=== PATIENT | male | born 1960 | race Caucasian/White ===

== ENCOUNTER 2023-01-22 08:13 | Inpatient (IN) ==
--- NOTE | 2023-01-04 15:55 | PAT Medication Instructions ---
Medication Instructions Date of Service January 04, 2023 Home Medications amlodipine 5 mg tablet 5 mg PO QPM aspirin 81 mg tablet,delayed release 81 mg PO QAM valsartan 160 mg-hydrochlorothiazide 12.5 mg tablet 1 tab PO QAM zolpidem 5 mg tablet (Ambien) 5 mg PO HS PRN Sleep DO NOT take the morning of surgery valsartan 160 mg-hydrochlorothiazide 12.5 mg tablet 1 tab PO QAM Take morning of surgery With a small sip of water, OTHERWISE NOTHING TO EAT OR DRINK AFTER MIDNIGHT: aspirin 81 mg tablet,delayed release 81 mg PO QAM (unless surgeon directed otherwise) Take evening before surgery amlodipine 5 mg tablet 5 mg PO QPM zolpidem 5 mg tablet (Ambien) 5 mg PO HS PRN Sleep (if needed) Other Notes If you have any questions please call us at [phone] or [phone] or [phone] or [phone]
--- NOTE | 2023-01-08 10:50 | Anesthesiology Consultation ---
Date of Service January 08, 2023 Assessment & Plan (1) Encounter for pre-operative examination: Plan - cough/PCP note: resolved per pt. - anesthesia complication: Pt reports "difficulty re-inflating lung" after renal surgery. No additional records. - Case discussed in detail with Dr. Gr who advised that nothing additional is needed from an anesthesia standpoint. Chart Review Chart Review: Acceptable Risk for Surgery and Patient seen in Pre Admission Testing Teaching & Discussion Pre-Anesthesia Teaching/Discussion Notes: Instructed NPO after midnight before surgery, except medications with 15 cc of water. Medication instructions provided according to the PAT guidelines. History Surgery Operation Date: 01/22/23 07:45 Proposed Procedures p L5-S1 Decomrpession and Fusion, Spinal Cord Monitoring - Marshall Bo, Height/Weight Height: 5 ft 10 in Weight: 102.1 kg Allergies Allergy/AdvReac Type Severity Reaction Status Date / Time meperidine [From Demerol] Allergy nausea and Verified 01/01/23 15:03 vomiting Medications Home Medications Medication Instructions Recorded Confirmed Last Taken amlodipine 5 mg tablet 5 mg PO QPM 01/01/23 01/01/23 Unknown aspirin 81 mg tablet,delayed 81 mg PO QAM 01/01/23 01/01/23 Unknown release valsartan 160 1 tab PO QAM 01/01/23 01/01/23 Unknown mg-hydrochlorothiazide 12.5 mg tablet zolpidem 5 mg tablet (Ambien) 5 mg PO HS PRN Sleep 01/01/23 01/01/23 Unknown Past Medical History Medical History Anxiety Deafness in left ear GERD (gastroesophageal reflux disease) rare History of anesthesia problem following nephrectomy "anesthesia had trouble reinflating his lung following the surgery, had to spend additional time in recovery." History of COVID-summer, home test, not hosp; fatigue, fever, flu-symptoms>resolved. Hx of kidney disease L 25 yrs ago, hematoma-unknown cause per pt-requiring nephrectomy in [place] Hypertension controlled, stable per pt Solitary kidney, acquired Patient denies h/o stroke, seizures, heart attack, heart failure, DM, blood clots or blood transfusions. Exercise / Class Metabolic Activity II 4-5 Yardwork/Stairs/Walk up hill (denies chest discomfort or shortness of breath with 1 FOS) Past Surgical History Surgical History History of nephrectomy L History of orchiectomy, unilateral left-"kept growing and causing pain/discomfort; no cause for the growth of the testicle" Hx laparoscopic cholecystectomy Hx of colonoscopy Hx of hernia repair 5 hernias repaired at one time-between umbilicus and groin Hx of laminectomy 6-7 years ago, in [place]; arthroscopic laminectomy Hx of tonsillectomy Past Anesthesia History No Family Hx of Anesthesia Complications and Other (see above) History of PONV No Hx of Motion Sickness and History of PONV Social History Smoking Status: Never smoker Do You Dip or Chew Tobacco: Yes (1 CAN/2-3 DAYS; ADVISED) Hx Alcohol Use: Yes Alcohol type: beer Alcohol Intake Frequency Comment: 1-2 PER WEEK Hx Substance Use: No substance use type: does not use Review of Systems Snoring, denies witnessed apneas. Patient denies chest pain, shortness of breath, dyspnea on exertion, fever, chills, wheezing, or palpitations. Physical Exam Vital Signs Vitals BP 120/79 P 73 TEMP 98.3 SP02 94% on RA RESP 18 Physical Patient alert and oriented throughout visit, in NAD, walking in room as needed for back pain Full cervical extension range of motion without pain TMD 3.5 finger breadths Mallampati Score 3 Dentition: full upper and lower dentures Lungs: normal respiratory effort. Clear throughout to auscultation, no adventitious breath sounds Cardiac: regular rate and rhythm, no murmurs noted Carotid arteries: negative bruit bilat Lab Results Anesthesia Preop Results Results Anesthesia Widget: WBC 5.36 K/ul (4.8-10.8) 01/08/23 Hgb 14.7 g/dl (14.0-18.0) 01/08/23 Hct 42.1 % (42.0-52.0) 01/08/23 Plt 331 K/uL (130-400) 01/08/23 Na 137 mmol/L (136-145) 01/08/23 K 4.0 mmol/L (3.5-5.1) 01/08/23 Cl 101 mmol/L (98-107) 01/08/23 CO2 32 mmol/L (21-32) 01/08/23 BUN 7 mg/dl (6-23) 01/08/23 Creat 0.89 mg/dl (0.6-1.4) 01/08/23 Glucose Level 102 mg/dl (70-99(Fasting)) H 01/08/23 PT 10.0 Seconds (9.0-12.0) 01/08/23 PTT 28.2 Seconds (21.0-31.0) 01/08/23 INR 0.9 (0.9-1.1) 01/08/23 Urine Color Yellow 01/08/23 Urine Appearance Clear (Clear) 01/08/23 Urine pH 6.5 (4.5-7.5) 01/08/23 Urine Specific Cecil 1.007 (1.000-1.030) 01/08/23 Urine Protein Negative (Negative) 01/08/23 Urine Glucose (UA) Negative (Negative) 01/08/23 Urine Ketones Negative (Negative) 01/08/23 Urine Blood Negative (Negative) 01/08/23 Urine Nitrite Negative (Negative) 01/08/23 Urine Bilirubin Negative (Negative) 01/08/23 Urine Urobilinogen Negative (Negative) 01/08/23 Urine Leukocyte Esterase Negative (Negative) 01/08/23 Blood Type O Negative 01/08/23 Antibody Screen NEGATIVE 01/08/23 Testing Electrocardiogram Date: 01/08/23 NSR, rate 66 bpm Chest X-Ray Date: 01/08/23 Lung volumes are normal. Lungs are clear. There is no pneumothorax or pleural effusion. Cardiac size is normal. Mediastinal contours are normal. There is no evidence for pulmonary edema. IMPRESSION: No acute cardiopulmonary findings. COVID-19 Risk Screen Screening Information COVID-19 Screen Date: 01/08/23 Exposure 21 Days Family/Household +COVID Last 21 Days: No Exposure 10 Days Any COVID Exposure Last 10 Days: No Symptoms Last 10 Days Experienced COVID Sx Last 10 Days: No + COVID 0-90 Days COVID + in Last 0-90 Days: No
[~2023-01-22 08:13] MED LIST: ACETAMINOPHEN 500 MG TAB PO SCH; CeleBREX 200 MG CAP PO SCH; GABAPENTIN 600 MG DOSE PO SCH; LR 15ML/HR IV SCH; ceFAZolin 2000MG 2,000 MG/15 ML SYR IV SCH
[2023-01-22] MEDS ORDERED: fentaNYL citrate PF 100 MCG/2 ML VIAL IV PRN (09:09)
[2023-01-22] MEDS ORDERED: ePHEDrine sulfate 50 MG/ML AMP IV PRN (09:09)
[2023-01-22] MEDS ORDERED: ONDANSETRON INJ 2 MG/ML 2 ML VIAL IV PRN ×2 (09:09→14:23)
[2023-01-22] MEDS ORDERED: ATROPINE SULFATE 0.1 MG/ML 10ML SYR IV PRN (09:09)
[2023-01-22] MEDS ORDERED: MIDAZOLAM HCL 1 MG/ML 2ML VIAL ONE (10:11)
[2023-01-22] MEDS ORDERED: ROCURONIUM BROMIDE 10 MG/ML 5 ML VIAL IV ONE ×2 (10:11→11:31)
[2023-01-22] MEDS ORDERED: PROPOFOL IV EMULSION 10 MG/ML 20 ML VIAL IV ONE (10:11)
[2023-01-22] MEDS ORDERED: fentaNYL citrate PF 100 MCG/2 ML VIAL ONE (10:11)
[2023-01-22] MEDS ORDERED: ONDANSETRON INJ 2 MG/ML 2 ML VIAL ONE (10:11)
[2023-01-22] MEDS ORDERED: LIDOCAINE 2% MPF LOCAL 5 ML VIAL ONE (10:11)
[2023-01-22] MEDS ORDERED: DEXAMETHASONE SOD INJ 4 MG/ML VIAL ONE (10:11)
--- NOTE | 2023-01-22 10:24 | History & Physical Bridge Note ---
Date of Service January 22, 2023 History & Physical Bridge Note I have examined the patient, reviewed the History & Physical and in the interval since the performance of the History & Physical I have noted the following changes of clinical significance: no changes noted L5-S1 decompression fusion, possible L4-L5
--- NOTE | 2023-01-22 10:25 | History & Physical Report ---
Date of Service January 22, 2023 Assessment & Plan (1) Neurogenic claudication due to lumbar spinal stenosis: Plan: Lumbar decompression fusion L5-S1 possible L4-L5 History of Present Illness Chief Complaint: Back and leg pain Primary Care Provider: Dante Bustillos, PhD, DO This is a 63-year-old male who presents with chronic persistent back and leg pain. After failing since course of nonoperative care is here for surgical invention. Allergies Allergy/AdvReac Type Severity Reaction Status Date / Time meperidine [From Demerol] Allergy nausea and Verified 01/22/23 08:59 vomiting Home Medications Medication Instructions Recorded Confirmed Type amlodipine 5 mg tablet 5 mg PO QPM 01/01/23 01/22/23 History aspirin 81 mg tablet,delayed 81 mg PO QAM 01/01/23 01/22/23 History release valsartan 160 1 tab PO QAM 01/01/23 01/22/23 History mg-hydrochlorothiazide 12.5 mg tablet zolpidem 5 mg tablet (Ambien) 5 mg PO HS PRN Sleep 01/01/23 01/22/23 History Past Med/Surg History Medical History Anxiety Deafness in left ear GERD (gastroesophageal reflux disease) rare History of anesthesia problem following nephrectomy "anesthesia had trouble reinflating his lung following the surgery, had to spend additional time in recovery." History of COVID-19 summer 2021, home test, not hosp; fatigue, fever, flu-symptoms>resolved. Hx of kidney disease L 25 yrs ago, hematoma-unknown cause per pt-requiring nephrectomy in [place] Hypertension controlled, stable per pt Solitary kidney, acquired Surgical History History of nephrectomy L History of orchiectomy, unilateral left-"kept growing and causing pain/discomfort; no cause for the growth of the testicle" Hx laparoscopic cholecystectomy Hx of colonoscopy Hx of hernia repair 5 hernias repaired at one time-between umbilicus and groin Hx of laminectomy 6-7 years ago, in [place]; arthroscopic laminectomy Hx of tonsillectomy Social History Smoking Status: Never smoker 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); Do You Dip or Chew Tobacco: Yes (1 CAN/2-3 DAYS; ADVISED); Tobacco Cessation Education Requested by Patient: No Hx Alcohol Use: Yes Alcohol type: beer Hx Substance Use: No Preferred Language: Lao Communication Ability: Effective [employer] Work Supervisor Required: No Beliefs That Will Affect Care: None Current Living Situation: Spouse Other Information That Helps Us Care for You: No Feels Safe at Home: Yes Safety Concerns: Feels Safe At This Time Assistive Devices: Denture - Upper and Glasses Physical Exam Physical Exam: Patient is alert and oriented Heart regular rhythm Lungs clear Results & Data Results & Data Vital Signs (Past 12 Hours) Vital Signs Temp Pulse Resp BP Pulse Ox O2 Del Method 01/22/23 08:51 36.8 C 74 20 128/85 96 Room Air
[2023-01-22] MEDS ORDERED: BUPIVACAINE/EPINEPHRINE 0.25% 1:200,000 30 ML VIAL ONE (10:47)
[2023-01-22] MEDS ORDERED: ceFAZolin 330 MG/ML 1 GM VIAL ONE (10:47)
[2023-01-22] MEDS ORDERED: PHENYLEPHRINE HCL 10 MG/ML VIAL ONE (11:50)
[2023-01-22] MEDS ORDERED: SUGAMMADEX SODIUM 200 MG/2 ML VIAL IV ONE (12:18)
[2023-01-22] MEDS ORDERED: FLOSEAL HEMOSTATIC MATRIX 10ML TOP ONE (12:37)
--- NOTE | 2023-01-22 13:06 | Operative Report ---
Post Operative Report Pre & Post Diagnosis Operation Date: 01/22/23 10:05 Pre-Op Diagnosis: Neurogenic claudication due to lumbar spinal stenosis Recurrent disc herniation L5-S1 Post-Op Diagnosis: Same I identified the patient and participated in the time-out.: Yes Procedure Operation Date: 01/22/23 10:05 Actual Procedures #1 revision decompression with bilateral medial facetectomies and foraminotomies L1 4 L5 L5-S1. #2 posterior spinal fusion L5-S1. #3 placement of posterior instrumentation L5-S1. #4 interbody fusion L5-S1. #5 placement of Spira 12 x 26 mm cage L5-S1. #6 placement locally harvested morselized autograft in the posterior gutters. #7 placement of I factor amount of the talus in the interbody space and posterior lateral gutters. Surgeon Marshall Bo, DO Project Mgr Romeo Holley Estimated Blood Loss 200 Findings See Below The patient is 5 foot 10 weighing over 100 kg with a BMI in excess of 31. Patient body habitus did contribute to significant technical difficulty required deepest retractors longer instruments in order to perform his procedure. This at least 50% increased operative time. Specimens None Indications This is a 63-year-old male who presents above-mentioned diagnosis after failing course of nonoperative care is here for surgical invention. Description of Procedure Patient was met with identified informed consent obtained. Patient was then taken to the operative suite underwent a patient placed in a prone position jacks table top Stephan frame. All bony promises well-padded eyes inspected to ensure no external pressure placed monitor at this point the lumbar spine was prepped and draped in normal sterile fashion. Sharp dissection with the assistance of bradycardia from down to and exposing the remaining lamina and transverse processes of L4-L5 and sacral ala bilaterally. A revision complete laminectomy of L5 partial laminectomy of L4 was performed including bilateral medial facetectomies and foraminotomies addressing severe spinal stenosis as well as evidence of a massive recurrent disc herniation L5-S1 on the left causing severe compression of the traversing roots. Was able to mobilize them immediately and remove all recurrent herniated fragments. Pedicle screws then placed in L5 and S1 levels bilaterally with assistance of fluoroscopy and the proper sized jerardo placed. By way of a transforaminal approach on the left complete discectomy of L5-S1 was performed endplates curetted to subcortically bone and a 12 x 26 mm Spira cage with I factor tapped in position. The rods then locked into final position bilaterally. The transverse processes of L2 5 and the sacral ala burred to subcortical bleeding bone. I factor amount of the test and locally harvested morselized autograft was placed in the posterior gutters. 15 round ANTONIO drain inserted. The incision was then closed with 1 Vicryl the fascia 2-0 Vicryl subcutaneously and 4 Monocryl for final skin closure. Steri-Strips and sterile dressing placed. Patient awakened taken to PACU stable condition. Please note spinal cord monitoring was utilized at the procedure no changes noted. Lastly Romeo Holley was present at the entire surgery and while the patient positioning complex portions of the surgery and final skin closure. I attest to the content of the Intraoperative Record and any orders documented therein. Any exceptions are noted below.
[2023-01-22] MEDS ORDERED: HYDROmorphone INJ 2 MG/ML SYR/VIAL ONE (13:13)
--- NOTE | 2023-01-22 13:19 | Fluoroscopy Report ---
FL lumbar spine 2-3V CLINICAL HISTORY: L5-S1 DFI COMPARISON STUDY: None. FLUOROSCOPY TIME: 19 seconds. Ka, r: 19.21 mGy FLUOROSCOPIC IMAGES: 2 FINDINGS: Fluoroscopy was provided during L5-S1 discectomy, posterior decompression and bilateral ped icle screw fusion. Hardware is intact. IMPRESSION: Fluoroscopy provided during L5-S1 discectomy, posterior decompression and bilateral pedi sandi screw fusion. ACT 112: Negative or not required by law. Electronically signed by: Cleve Snowden M.D. 01/22/2023 1:17 PM
--- NOTE | 2023-01-22 13:59 | Anesthesiology Progress Note ---
Date of Service January 22, 2023 Anesthesia Post Procedure Vital Signs Vital Signs: Temp Pulse Pulse Resp BP Pulse Ox O2 Del Method 01/22/23 13:45 71 19 105/75 98 Oxymask 01/22/23 13:35 73 19 132/78 100 Oxymask 01/22/23 13:26 96.8 F L 83 20 131/77 97 Oxymask 01/22/23 08:51 98.2 F 74 20 128/85 96 Room Air O2 Flow Rate 01/22/23 13:45 5 01/22/23 13:35 5 01/22/23 13:26 9 01/22/23 08:51 Transfer of Care Handoff Completed per policy Notes Mental Status: alert / awake / arousable and participated in evaluation Patient Amnestic to Procedure: Yes Nausea / Vomiting: adequately controlled Pain: adequately controlled Airway Patency, RR, SpO2: stable & adequate BP & HR: stable & adequate Hydration State: stable & adequate Anesthetic Complications: no major complications apparent and Pt Satisfied with anesthetic care
[2023-01-22] MEDS ORDERED: traMADol HCL 50 MG TABLET PO PRN (14:23)
[2023-01-22] MEDS ORDERED: ACETAMINOPHEN 1,000 MG/100 ML VIAL IV PRN (14:23)
[2023-01-22] MEDS ORDERED: PROMETHAZINE HCL 12.5 MG in SODIUM CHLORIDE 0.9% 50 ML IV PRN (14:23)
[2023-01-22] MEDS ORDERED: LORazepam 2 MG/1 ML VIAL IV PRN (14:23)
[2023-01-22] MEDS ORDERED: SOD PHOSPHATE/SOD BIPHOSPHATE ENEMA 132 ML BTL PR PRN (14:23)
[2023-01-22] MEDS ORDERED: NALOXONE HCL 0.4 MG/1 ML VIAL/CARP IV PRN (14:23)
[2023-01-22] MEDS ORDERED: METOCLOPRAMIDE HCL INJ 5 MG/ML 2 ML VIAL IV PRN (14:23)
[2023-01-22] MEDS ORDERED: DO NOT ADMINISTER FLU VACCINE PRN (14:23)
[2023-01-22] MEDS ORDERED: HYDROmorphone INJ 1 MG/ML SYRINGE IV PRN (14:23)
[2023-01-22] MEDS ORDERED: ALUMINUM/MAGNESIUM SUSP 30 ML UDC PO PRN (14:23)
[2023-01-22] MEDS ORDERED: bisacodyL 10 MG SUPP PR PRN (14:23)
[2023-01-22] MEDS ORDERED: LORazepam 0.5 MG TAB PO PRN (14:23)
[2023-01-22] MEDS ORDERED: MAGNESIUM HYDROXIDE SUSP 30 ML UDC PO PRN (14:23)
[2023-01-22] MEDS ORDERED: diphenhydrAMINE Capsule 25 MG CAP PO PRN (14:23)
[2023-01-22] MEDS ORDERED: DO NOT ADMINISTER PNEUMOCOCCAL VACCINE PRN (14:23)
[2023-01-22] MEDS ORDERED: ONDANSETRON 4 MG OD TAB PO PRN (14:23)
[2023-01-22] MEDS ORDERED: hydrOXYzine HCl 25 MG TAB PO PRN (14:23)
[2023-01-22] MEDS ORDERED: HYDROmorphone INJ 0.5 MG/0.5 ML SYR IV PRN (14:23)
[2023-01-22] MEDS ORDERED: FAMOTIDINE 20 MG TAB PO PRN (14:23)
[2023-01-22] MEDS: oxyCODONE HCL IR 5 MG TAB (IMMEDIATE RELEASE) PO PRN ×2 (14:47→22:06)
--- NOTE | 2023-01-22 15:06 | Hospitalist Consultation ---
Date of Consultation January 22, 2023 Assessment & Plan (1) Neurogenic claudication due to lumbar spinal stenosis: - Pain management, bowel regimen and DVT ppx per the primary team - PT/OT consults, pt is planning on outpatient therapy , at bedside will assist at home - Follow am CBC to monitor for acute blood loss, last hemoglobin was 14.7 on 01/08/2023 (2) Hypertension: -Continue baby aspirin and amlodipine, valsartan/HCTZ (3) Chewing tobacco nicotine dependence: - Nicotine patch ordered - Chews 1 can in 2-3 days and has been chewing since age 11. No desire to quit. Discussed with him at bedside and encouraged cessation to promote optimal wound healing. (4) GERD (gastroesophageal reflux disease): -Stable (5) Solitary kidney, acquired: -Right kidney. -Status post left kidney nephrectomy from kidney hematoma of unknown origin, removed in [place] DVT PPx: - teds, scds CODE: Full code Dispo: From home, likely to remain in the hospital x 1-2 days, discharge per primary team Thank you for involving us in the care of Mr. Balderas. If you have any questions or concerns please do not hesitate to call. At this time medicine will follow along. A total of 41 minutes were spent with greater than 50% of that time face to face with the patient, personally reviewing all current laboratories, imaging studies, past medication reconciliation, outpatient chart review, and discussion with specialists to collaborate care for the patient with attending. Please see attending documentation for corrections and/or additions. History of Present Illness Reason for Consultation: Medical management Requesting Physician: Dr. Bo Attending Physician: Marshall Bo DO History of Present Illness This is a 63-year-old male with PMHx of hypertension, right solitary kidney, history of kidney disease left kidney with hematoma of unknown origin requiring nephrectomy in [place], GERD, anxiety, deafness in left ear, obesity with BMI of 31.9, who presents to the hospital for elective revision decompression and fusion by Dr. Bo on 01/22/23. Patient states that he is doing well, his is present with him at bedside. He has minimal pain, was just given a pain tablet by nursing personnel 15 minutes prior to my arrival. Last bowel movement was yesterday. He has tolerated water, no other food yet. Denies any abdominal complaints. Patient admits to chewing tobacco since age 11, chews 1 can in approximately 2 to 3 days. Cessation was encouraged at bedside. Discussion regarding optimal wound healing and nicotine was held at bedside. Patient is agreeable to attempting to cut back. He took all his morning medications. Patient reports using Ambien fairly regularly at home for sleep, he has been taking this for many years, occasionally cuts the pill in half. Allergies Allergy/AdvReac Type Severity Reaction Status Date / Time meperidine [From Demerol] Allergy nausea and Verified 01/22/23 08:59 vomiting Home Medications Medication Instructions Recorded Confirmed Type amlodipine 5 mg tablet 5 mg PO QPM 01/01/23 01/22/23 History aspirin 81 mg tablet,delayed 81 mg PO QAM 01/01/23 01/22/23 History release valsartan 160 1 tab PO QAM 01/01/23 01/22/23 History mg-hydrochlorothiazide 12.5 mg tablet zolpidem 5 mg tablet (Ambien) 5 mg PO HS PRN Sleep 01/01/23 01/22/23 History Patient History Medical History (Updated 01/22/23 @ 15:01 by Tonya Cevallos PA-C) Anxiety Deafness in left ear GERD (gastroesophageal reflux disease) rare History of anesthesia problem following nephrectomy "anesthesia had trouble reinflating his lung following the surgery, had to spend additional time in recovery." History of COVID-19 summer 2021, home test, not hosp; fatigue, fever, flu-symptoms>resolved. Hx of kidney disease L 25 yrs ago, hematoma-unknown cause per pt-requiring nephrectomy in [place] Hypertension controlled, stable per pt Solitary kidney, acquired Surgical History History of nephrectomy L History of orchiectomy, unilateral left-"kept growing and causing pain/discomfort; no cause for the growth of the testicle" Hx laparoscopic cholecystectomy Hx of colonoscopy Hx of hernia repair 5 hernias repaired at one time-between umbilicus and groin Hx of laminectomy 6-7 years ago, in [place]; arthroscopic laminectomy Hx of tonsillectomy Social History Smoking Status: Never smoker 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); Do You Dip or Chew Tobacco: Yes (1 CAN/2-3 DAYS; ADVISED); Tobacco Cessation Education Requested by Patient: No Hx Alcohol Use: Yes Alcohol type: beer Hx Substance Use: No Preferred Language: Bulgarian Communication Ability: Effective Audio Engineer Required: No Beliefs That Will Affect Care: None Current Living Situation: Spouse Other Information That Helps Us Care for You: No Feels Safe at Home: Yes Safety Concerns: Feels Safe At This Time Assistive Devices: Denture - Upper and Glasses Review of Systems Review of Systems: Constitutional: No fever, sweats or chills Eyes: No diplopia, no worsening or blurred vision ENT: normal hearing, no trouble swallowing Respiratory: No cough, sputum, dyspnea at rest or on exertion Cardiovascular: No chest pain, tightness or palpitations Abdomen: No pain, nausea, vomiting, diarrhea or constipation Musculoskeletal: No joint pain, calf pain, swelling Neurologic: No weakness, numbness/tingling, or balance problems Psychiatric: No anxiety or depression Skin: No rash or itch Physical Exam Physical Exam: General: awake, alert, no apparent distress, + obese with BMI of 31.9 Head: Normocephalic, atraumatic ENT: PERRL, EOMI, no pharyngeal exudate, mucous membranes moist Chest: Clear to auscultation, on room air, no adventitious breath sounds Cardiac: Regular rate and rhythm, no murmur, no JVD, normal peripheral pulses, good capillary refill Abdominal: NABS x 4 quadrants, soft, nondistended, nontender to palpation, no re bound or guarding Back: Dressing C/D/I, ANTONIO drain in place with serosanginous bloody outs Extremities: Normal inspection, no peripheral edema or erythema, calfs nontender to palpation Psych: Normal mood and affect Neuro: AAO x 3, strength intact bilaterally and rated 5/5, no motor deficits, speech is clear, no peripheral sensory deficits Results & Data Results & Data Vital Signs (Past 12 Hours) Vital Signs Temp Pulse Pulse Resp BP Pulse Ox O2 Del Method 01/22/23 14:23 36.6 C 78 16 147/85 H 95 Room Air 01/22/23 14:05 77 17 129/71 93 Room Air 01/22/23 13:55 36 C L 74 18 134/80 94 Room Air 01/22/23 13:45 71 19 105/75 98 Oxymask 01/22/23 13:35 73 19 132/78 100 Oxymask 01/22/23 13:26 36 C L 83 20 131/77 97 Oxymask 01/22/23 08:51 36.8 C 74 20 128/85 96 Room Air O2 Flow Rate 01/22/23 14:23 01/22/23 14:05 01/22/23 13:55 01/22/23 13:45 5 01/22/23 13:35 5 01/22/23 13:26 9 01/22/23 08:51
[2023-01-22] MEDS: LACTATED RINGER'S 1,000 ML IV SCH ×2 (16:00→20:04)
[2023-01-22] MEDS: ACETAMINOPHEN 500 MG TAB PO PRN (19:41)
[2023-01-22] MEDS: ceFAZolin 2000MG 2,000 MG/15 ML SYR IV SCH (20:04)
[2023-01-22] MEDS: amLODIPine BESYLATE 5 MG TAB PO SCH (20:04)
[2023-01-22] MEDS: DOCUSATE SODIUM/SENNA 50/8.6MG TAB PO SCH (20:35)
[2023-01-23] MEDS: ZOLPIDEM TARTRATE 5 MG TAB PO PRN ×2 (00:14→21:23)
[2023-01-23] MEDS: ceFAZolin 2000MG 2,000 MG/15 ML SYR IV SCH (03:22)
[2023-01-23] MEDS: POLYETHYLENE (MIRALAX) 17 GM PACK PO SCH ×4 (05:49→23:49)
[2023-01-23 07:21] LABS: Basophils # (auto) 0.01 K/uL (0-0.2); Basophils % (auto) 0.1 %; Hematocrit (blood only) 35.5 % (42.0-52.0); Hemoglobin 12.2 g/dl (14.0-18.0); Immature Granulocytes # (auto) 0.03 K/uL (0.01-0.20); Immature Granulocytes % (auto) 0.3 %; Lymphocytes # (auto) 0.98 K/uL (1.2-3.4); Lymphocytes % (auto) 10.3 %; Mean Corpuscular Hemoglobin 30.1 pg (25.0-34.0); Mean Corpuscular Hgb Conc 34.4 g/dL (32.0-36.0); Mean Corpuscular Volume 87.7 fL (80.0-100.0); Monocytes # (auto) 0.67 K/uL (0.11-0.59); Monocytes % (auto) 7.1 %; Neutrophils # (auto) 7.79 K/uL (1.40-6.50); Neutrophils % (auto) 82.2 %; Platelet Count 259 K/uL (130-400); RDW Coefficient of Variation 12.4 % (11.5-14.5); RDW Standard Deviation 39.9 fL (36.4-46.3); Red Blood Count 4.05 M/uL (4.70-6.10); White Blood Count 9.48 K/ul (4.8-10.8)
[2023-01-23 07:30] LABS: BUN Creatinine Ratio 16.1 (10-20); Creatinine Clr Calc Pharmacy 95.5 ml/min; Est GFR (African American) 100.2 ml/min; Est GFR (Non-African American) 86.5 ml/min; Potassium 4.3 mmol/L (3.5-5.1)
--- NOTE | 2023-01-23 07:31 | Orthopedic Progress Note ---
Date of Service January 23, 2023 Assessment & Plan (1) Neurogenic claudication due to lumbar spinal stenosis: Plan: Patient is doing well postoperative day #1. He is going to be mobilized with physical therapy today. And make sure he is on GI and DVT prophylaxis and keep his pain controlled with medications. We will continue to follow him and likely be discharged home either tomorrow or Wednesday. Admission and Anticipated Discharge Date Admission Date: January 22, 2023 Subjective Patient seen bedside in room 323. He is postoperative day #1 status post lumbar decompression L4-5 L5-S1 and instrumented fusion at L5-S1. He is doing well this morning. His pain is well controlled. The leg pain has significantly improved compared to his preoperative state. He still has some paresthesias in the left leg. He has been tolerating food. He is urinating without difficulties. He denies any other numbness, tingling, or paresthesias. Physical Exam Physical Exam: On exam he is alert and oriented. He appears comfortable. His visual smith are grossly intact. His abdomen soft nontender his calves are supple nontender. Strength and sensation are both intact his dressing is clean dry and intact he has placed 40 cc of drainage out on the last shift and 40 on the previous. Cardiovascular exam reveals no gross abnormalities. Results & Data Vital Signs (Past 12 Hours) Vital Signs Temp Pulse Resp BP Pulse Ox O2 Del Method 01/23/23 04:12 37.4 C 68 18 133/72 96 Room Air 01/22/23 22:27 36.8 C 77 18 121/73 95 Room Air
[2023-01-23] MEDS: hydroCHLOROthiazide 25 MG TAB PO SCH (08:24)
[2023-01-23] MEDS: VALSARTAN 80 MG TAB PO SCH (08:24)
[2023-01-23] MEDS: dexAMETHasone 6 MG in SYRINGE 0 ML IV SCH (08:25)
[2023-01-23] MEDS: ASPIRIN 81 MG ECTAB PO SCH (08:25)
[2023-01-23] MEDS: oxyCODONE HCL IR 5 MG TAB (IMMEDIATE RELEASE) PO PRN ×2 (10:08→20:38)
--- NOTE | 2023-01-23 12:13 | Hospitalist Progress Note ---
Date of Service January 23, 2023 Assessment & Plan (1) Neurogenic claudication due to lumbar spinal stenosis: Plan: - Pain management, bowel regimen, diet, activities and DVT ppx per the primary team -PT OT ronnie seen pending -Further management per primary team (2) Hypertension: Plan: -Continue baby aspirin and amlodipine, valsartan/HCTZ (3) Chewing tobacco nicotine dependence: Plan: - Nicotine patch ordered - Chews 1 can in 2-3 days and has been chewing since age 11. No desire to quit. Discussed with him at bedside and encouraged cessation to promote optimal wound healing. (4) GERD (gastroesophageal reflux disease): Plan: -Stable (5) Solitary kidney, acquired: Plan: -Right kidney. 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 Defer chemoprophylaxis to primary team Disposition: Per primary team Admission and Anticipated Discharge Date Admission Date: January 22, 2023 Subjective Patient was seen and examined at bedside. Pain is controlled. Tolerating diet without issues. No nausea or vomiting. Passed gas but no bowel movement yet. Voiding without issues. Physical Exam Physical Exam: General: Sitting comfortably in bed, not in distress, on room air HEENT: MYRON, MMM Chest: Clear breath sounds bilaterally, no wheezes or crackles CVS: Regular rate and rhythm, normal heart sounds, no murmur Abdomen: Soft, non tender, not distended, normal bowel sounds Neuro: Awake, alert, oriented, conversing well, non focal Extremities: No cyanosis, clubbing or edema ANTONIO drain with serosanguineous output Results & Data Results & Data Vital Signs (Past 12 Hours) Vital Signs Temp Pulse Resp BP Pulse Ox O2 Del Method 01/23/23 11:12 37.0 C 77 19 122/73 95 Room Air 01/23/23 08:02 37.0 C 80 19 126/78 98 Room Air 01/23/23 04:12 37.4 C 68 18 133/72 96 Room Air Laboratory Results Short CBC 01/23/23 Range/Units 06:45 WBC 9.48 (4.8-10.8) K/ul Hgb 12.2 L (14.0-18.0) g/dl Hct 35.5 L (42.0-52.0) % Plt Count 259 (130-400) K/uL BMP 01/23/23 06:45 Sodium 137 Potassium 4.3 Chloride 105 Carbon Dioxide 26 BUN 15 Creatinine 0.93 Glucose 172 H Calcium 9.0 Medications Administered Current Inpatient Medications Acetaminophen (Acetaminophen 500 Mg Tab) 1,000 mg PO Q8H PRN PRN Reason: MILD Pain Scale 1,2,3 & Pre PT Stop: 02/21/23 14:22 Last Admin: 01/22/23 19:41 Dose: 1,000 mg Al Hydrox/Mg Hydrox/Simethicone (Aluminum/Magnesium Susp 30 Ml Udc) 30 ml PO Q6H PRN PRN Reason: Dyspepsia Stop: 02/21/23 14:22 Amlodipine Besylate (Amlodipine Besylate 5 Mg Tab) 5 mg PO [address] [place] [address] Stop: 02/21/23 19:59 Last Admin: 01/22/23 20:04 Dose: 5 mg Aspirin (Aspirin 81 Mg Ectab) 81 mg PO [facility] Stop: 02/22/23 08:59 Last Admin: 01/23/23 08:25 Dose: 81 mg Bisacodyl (Bisacodyl 10 Mg Supp) 10 mg AR DAILY PRN PRN Reason: Constipation Stop: 02/21/23 14:22 Diphenhydramine HCl (Diphenhydramine Capsule 25 Mg Cap) 25 mg PO Q6H PRN PRN Reason: Allergic Rhinitis/Insomnia Stop: 02/21/23 14:22 Famotidine (Famotidine 20 Mg Tab) 20 mg PO Q12H PRN PRN Reason: Dyspepsia Stop: 02/21/23 14:22 Hydrochlorothiazide (Hydrochlorothiazide 25 Mg Tab) 12.5 mg PO [facility] Stop: 02/22/23 08:59 Last Admin: 01/23/23 08:24 Dose: 12.5 mg Hydromorphone HCl (Hydromorphone Inj 0.5 Mg/0.5 Ml Syr) 0.5 mg IV Q3H PRN PRN Reason: MODERATE Pain (Scale 4,5,6) & Pre PT Stop: 02/05/23 14:22 Hydromorphone HCl (Hydromorphone Inj 1 Mg/Ml Syringe) 1 mg IV Q3H PRN PRN Reason: SEVERE Pain (Scale 7,8,9,10) Stop: 02/05/23 14:22 Hydroxyzine HCl (Hydroxyzine Hcl 25 Mg Tab) 25 mg PO Q8H PRN PRN Reason: Anxiety Stop: 02/21/23 14:22 Promethazine HCl 12.5 mg/ (Sodium Chloride) 50.5 mls @ 202 mls/hr IV Q6H PRN PRN Reason: Nausea &/or Vomiting Stop: 02/21/23 14:22 Acetaminophen (Ofirmev) 1,000 mg in 100 mls @ 400 mls/hr IV Q8H PRN PRN Reason: Pain Rating 1-3 & Pre PT Stop: 01/23/23 14:25 Dexamethasone 6 mg/ Syringe 1.5 mls @ 1 mls/min IV DAILY ELE Stop: 01/25/23 09:02 Last Admin: 01/23/23 08:25 Dose: 1 mls/min Influenza Virus Vaccine Quadrival (Do Not Administer Flu Vaccine) 1 each N/A PRN PRN PRN Reason: Notification Stop: 02/21/23 14:22 Lorazepam (Lorazepam 0.5 Mg Tab) 0.5 mg PO Q8H PRN PRN Reason: Sedation/Anxiety Stop: 02/21/23 14:22 Lorazepam (Lorazepam 2 Mg/1 Ml Vial) 0.5 mg IV Q8H PRN PRN Reason: Sedation/Anxiety Stop: 02/21/23 14:22 Magnesium Hydroxide (Magnesium Hydroxide Susp 30 Ml Udc) 30 ml PO Q24H PRN PRN Reason: Constipation Stop: 02/21/23 14:22 Metoclopramide HCl (Metoclopramide Hcl Inj 5 Mg/Ml 2 Ml Vial) 10 mg IV Q6H PRN PRN Reason: Nausea &/or Vomiting Stop: 02/21/23 14:22 Naloxone HCl (Naloxone Hcl 0.4 Mg/1 Ml Vial/Carp) 0.1 mg IV Q5M PRN PRN Reason: Oversedation/Resp depression Stop: 02/21/23 14:22 Ondansetron HCl (Ondansetron Inj 2 Mg/Ml 2 Ml Vial) 4 mg IV Q6H PRN PRN Reason: Nausea &/or Vomiting Stop: 02/21/23 14:22 Ondansetron HCl (Ondansetron 4 Mg Od Tab) 4 mg PO Q6H PRN PRN Reason: Nausea Stop: 02/21/23 14:22 Oxycodone HCl (Oxycodone Hcl Ir 5 Mg Tab (Immediate Release)) 5 - 10 mg PO Q4H PRN PRN Reason: Pain & Pre PT Stop: 02/05/23 14:22 Last Admin: 01/23/23 10:08 Dose: 5 mg Pneumococcal Polyvalent Vaccine (Do Not Administer Pneumococcal Vaccine) 1 each N/A PRN PRN PRN Reason: Notification Stop: 02/21/23 14:22 Polyethylene Glycol (Polyethylene (Miralax) 17 Gm Pack) 17 gm PO Q6 [facility] Stop: 02/22/23 05:59 Last Admin: 01/23/23 05:49 Dose: 17 gm Senna/Docusate Sodium (Docusate Sodium/Senna 50/8.6mg Tab) 2 tab PO HS ELE Stop: 02/21/23 20:59 Last Admin: 01/22/23 20:35 Dose: 2 tab Sodium Biphosphate/Sodium Phosphate (Sod Phosphate/Sod Biphosphate Enema 132 Ml Btl) 132 ml AR ONE PRN PRN Reason: Constipation Stop: 02/21/23 14:22 Tramadol HCl (Tramadol Hcl 50 Mg Tablet) 50 - 100 mg PO Q4H PRN PRN Reason: Moderate-Severe pain & Pre PT Stop: 02/21/23 14:22 Valsartan (Valsartan 80 Mg Tab) 160 mg PO QAM [facility] Stop: 02/22/23 08:59 Last Admin: 01/23/23 08:24 Dose: 160 mg Zolpidem Tartrate (Zolpidem Tartrate 5 Mg Tab) 5 mg PO HS PRN PRN Reason: Sleep Stop: 02/21/23 14:22 Last Admin: 01/23/23 00:14 Dose: 5 mg
[2023-01-23] MEDS: ACETAMINOPHEN 500 MG TAB PO PRN (16:30)
[2023-01-23] MEDS: DOCUSATE SODIUM/SENNA 50/8.6MG TAB PO SCH (21:23)
[2023-01-23] MEDS: amLODIPine BESYLATE 5 MG TAB PO SCH (21:23)
[2023-01-24] MEDS: oxyCODONE HCL IR 5 MG TAB (IMMEDIATE RELEASE) PO PRN (03:04)
[2023-01-24] MEDS: POLYETHYLENE (MIRALAX) 17 GM PACK PO SCH ×3 (06:31→17:35)
--- NOTE | 2023-01-24 08:29 | Orthopedic Progress Note ---
Date of Service January 24, 2023 Assessment & Plan (1) Neurogenic claudication due to lumbar spinal stenosis: Plan Patient is doing well postoperative day #2. We are going to continue with GI DVT prophylaxis as well as pain control. He will mobilize with physical therapy today. He has not had a bowel movement and will continue with stool softeners. We will keep him in-house today and likely get him home first thing tomorrow morning. Admission and Anticipated Discharge Date Admission Date: January 22, 2023 Subjective Patient was seen bedside in room 323. He was comfortable yesterday. His left leg pain continues to decrease in intensity. He is able to sit for longer periods of time. He tolerated food well yesterday. His pain is well controlled and only took pain medication twice yesterday. He denies any other numbness, tingling, or paresthesias. Physical Exam Physical Exam: On exam he is alert and oriented. He is in no apparent distress. His abdomen soft nontender his calves are supple nontender. Strength and sensation are both intact his dressing is clean dry and intact his ANTONIO drain is in place and put out 35 cc of drainage on the last shift and 30 on the previous. Results & Data Vital Signs (Past 12 Hours) Vital Signs Temp Pulse Pulse Resp BP Pulse Ox O2 Del Method 01/24/23 07:34 36.9 C 68 14 130/80 95 Room Air 01/23/23 20:35 37.2 C 86 18 137/68 96 Room Air
[2023-01-24] MEDS: hydroCHLOROthiazide 25 MG TAB PO SCH (08:40)
[2023-01-24] MEDS: VALSARTAN 80 MG TAB PO SCH (08:40)
[2023-01-24] MEDS: ASPIRIN 81 MG ECTAB PO SCH (08:40)
[2023-01-24] MEDS: dexAMETHasone 6 MG in SYRINGE 0 ML IV SCH (08:41)
[2023-01-24] MEDS: ACETAMINOPHEN 500 MG TAB PO PRN ×2 (08:41→21:52)
--- NOTE | 2023-01-24 12:00 | Hospitalist Progress Note ---
Date of Service January 24, 2023 Assessment & Plan (1) Neurogenic claudication due to lumbar spinal stenosis: Plan: - Pain management, bowel regimen, diet, activities and DVT ppx per the primary team -PT OT ronnie seen pending -Further management per primary team (2) Hypertension: Plan: -Continue baby aspirin and amlodipine, valsartan/HCTZ (3) Chewing tobacco nicotine dependence: Plan: - Nicotine patch ordered - Chews 1 can in 2-3 days and has been chewing since age 11. No desire to quit. Discussed with him at bedside and encouraged cessation to promote optimal wound healing. (4) GERD (gastroesophageal reflux disease): Plan: -Stable (5) Solitary kidney, acquired: Plan: -Right kidney. 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 Defer chemoprophylaxis to primary team Disposition: Per primary team Admission and Anticipated Discharge Date Admission Date: January 22, 2023 Subjective Patient was seen and examined at bedside in presence of his . Pain is controlled. Normal oral intake. Passing gas, no bowel movement yet. Voiding without issues. Doing well with therapy. Hoping to go home tomorrow. Review of Systems Review of Systems: All systems reviewed & are unremarkable except as noted in Subjective Physical Exam Physical Exam: General: Sitting comfortably in bed eating breakfast, not in distress, on room air HEENT: MYRON, MMM Chest: Clear breath sounds bilaterally, no wheezes or crackles CVS: Regular rate and rhythm, normal heart sounds, no murmur Abdomen: Soft, non tender, not distended, normal bowel sounds Neuro: Awake, alert, oriented, conversing well, non focal Extremities: No cyanosis, clubbing or edema ANTONIO drain with serosanguineous output MSK: Back incision covered with dressing, clean Results & Data Results & Data Vital Signs (Past 12 Hours) Vital Signs Temp Pulse Resp BP Pulse Ox O2 Del Method 01/24/23 07:34 36.9 C 68 14 130/80 95 Room Air Medications Administered Current Inpatient Medications Acetaminophen (Acetaminophen 500 Mg Tab) 1,000 mg PO Q8H PRN PRN Reason: MILD Pain Scale 1,2,3 & Pre PT Stop: 02/21/23 14:22 Last Admin: 01/24/23 08:41 Dose: 1,000 mg Al Hydrox/Mg Hydrox/Simethicone (Aluminum/Magnesium Susp 30 Ml Udc) 30 ml PO Q6H PRN PRN Reason: Dyspepsia Stop: 02/21/23 14:22 Amlodipine Besylate (Amlodipine Besylate 5 Mg Tab) 5 mg PO 2000 [facility] Stop: 02/21/23 19:59 Last Admin: 01/23/23 21:23 Dose: 5 mg Aspirin (Aspirin 81 Mg Ectab) [facility] Stop: 02/22/23 08:59 Last Admin: 01/24/23 08:40 Dose: 81 mg Bisacodyl (Bisacodyl 10 Mg Supp) 10 mg [place] DAILY PRN PRN Reason: Constipation Stop: 02/21/23 14:22 Diphenhydramine HCl (Diphenhydramine Capsule 25 Mg Cap) 25 mg PO Q6H PRN PRN Reason: Allergic Rhinitis/Insomnia Stop: 02/21/23 14:22 Famotidine (Famotidine 20 Mg Tab) 20 mg PO Q12H PRN PRN Reason: Dyspepsia Stop: 02/21/23 14:22 Hydrochlorothiazide (Hydrochlorothiazide 25 Mg Tab) 12.5 mg PO [facility] Stop: 02/22/23 08:59 Last Admin: 01/24/23 08:40 Dose: 12.5 mg Hydromorphone HCl (Hydromorphone Inj 0.5 Mg/0.5 Ml Syr) 0.5 mg IV Q3H PRN PRN Reason: MODERATE Pain (Scale 4,5,6) & Pre PT Stop: 02/05/23 14:22 Hydromorphone HCl (Hydromorphone Inj 1 Mg/Ml Syringe) 1 mg IV Q3H PRN PRN Reason: SEVERE Pain (Scale 7,8,9,10) Stop: 02/05/23 14:22 Hydroxyzine HCl (Hydroxyzine Hcl 25 Mg Tab) 25 mg PO Q8H PRN PRN Reason: Anxiety Stop: 02/21/23 14:22 Promethazine HCl 12.5 mg/ (Sodium Chloride) 50.5 mls @ 202 mls/hr IV Q6H PRN PRN Reason: Nausea &/or Vomiting Stop: 02/21/23 14:22 Dexamethasone 6 mg/ Syringe 1.5 mls @ 1 mls/min IV DAILY [facility] Stop: 01/25/23 09:02 Last Admin: 01/24/23 08:41 Dose: 1 mls/min Influenza Virus Vaccine Quadrival (Do Not Administer Flu Vaccine) 1 each N/A PRN PRN PRN Reason: Notification Stop: 02/21/23 14:22 Lorazepam (Lorazepam 0.5 Mg Tab) 0.5 mg PO Q8H PRN PRN Reason: Sedation/Anxiety Stop: 02/21/23 14:22 Lorazepam (Lorazepam 2 Mg/1 Ml Vial) 0.5 mg IV Q8H PRN PRN Reason: Sedation/Anxiety Stop: 02/21/23 14:22 Magnesium Hydroxide (Magnesium Hydroxide Susp 30 Ml Udc) 30 ml PO Q24H PRN PRN Reason: Constipation Stop: 02/21/23 14:22 Metoclopramide HCl (Metoclopramide Hcl Inj 5 Mg/Ml 2 Ml Vial) 10 mg IV Q6H PRN PRN Reason: Nausea &/or Vomiting Stop: 02/21/23 14:22 Naloxone HCl (Naloxone Hcl 0.4 Mg/1 Ml Vial/Carp) 0.1 mg IV Q5M PRN PRN Reason: Oversedation/Resp depression Stop: 02/21/23 14:22 Ondansetron HCl (Ondansetron Inj 2 Mg/Ml 2 Ml Vial) 4 mg IV Q6H PRN PRN Reason: Nausea &/or Vomiting Stop: 02/21/23 14:22 Ondansetron HCl (Ondansetron 4 Mg Od Tab) 4 mg PO Q6H PRN PRN Reason: Nausea Stop: 02/21/23 14:22 Oxycodone HCl (Oxycodone Hcl Ir 5 Mg Tab (Immediate Release)) 5 - 10 mg PO Q4H PRN PRN Reason: Pain & Pre PT Stop: 02/05/23 14:22 Last Admin: 01/24/23 03:04 Dose: 5 mg Pneumococcal Polyvalent Vaccine (Do Not Administer Pneumococcal Vaccine) 1 each N/A PRN PRN PRN Reason: Notification Stop: 02/21/23 14:22 Polyethylene Glycol (Polyethylene (Miralax) 17 Gm Pack) 17 gm PO Q6 [facility] Stop: 02/22/23 05:59 Last Admin: 01/24/23 06:31 Dose: 17 gm Senna/Docusate Sodium (Docusate Sodium/Senna 50/8.6mg Tab) 2 tab PO HS ELE Stop: 02/21/23 20:59 Last Admin: 01/23/23 21:23 Dose: 2 tab Sodium Biphosphate/Sodium Phosphate (Sod Phosphate/Sod Biphosphate Enema 132 Ml Btl) 132 ml [place] ONE PRN PRN Reason: Constipation Stop: 02/21/23 14:22 Tramadol HCl (Tramadol Hcl 50 Mg Tablet) 50 - 100 mg PO Q4H PRN PRN Reason: Moderate-Severe pain & Pre PT Stop: 02/21/23 14:22 Valsartan (Valsartan 80 Mg Tab) 160 mg PO QAM [facility] Stop: 02/22/23 08:59 Last Admin: 01/24/23 08:40 Dose: 160 mg Zolpidem Tartrate (Zolpidem Tartrate 5 Mg Tab) 5 mg PO HS PRN PRN Reason: Sleep Stop: 02/21/23 14:22 Last Admin: 01/23/23 21:23 Dose: 5 mg
[2023-01-24] MEDS: DOCUSATE SODIUM/SENNA 50/8.6MG TAB PO SCH (21:52)
[2023-01-24] MEDS: amLODIPine BESYLATE 5 MG TAB PO SCH (21:52)
[2023-01-24] MEDS: ZOLPIDEM TARTRATE 5 MG TAB PO PRN (22:08)
[2023-01-25] MEDS: POLYETHYLENE (MIRALAX) 17 GM PACK PO SCH (01:28)
[2023-01-25] MEDS: ACETAMINOPHEN 500 MG TAB PO PRN (06:36)
[2023-01-25] MEDS: hydroCHLOROthiazide 25 MG TAB PO SCH (09:10)
[2023-01-25] MEDS: dexAMETHasone 6 MG in SYRINGE 0 ML IV SCH (09:10)
[2023-01-25] MEDS: ASPIRIN 81 MG ECTAB PO SCH (09:10)
[2023-01-25] MEDS: VALSARTAN 80 MG TAB PO SCH (09:11)
--- NOTE | 2023-01-25 10:30 | Discharge Summary ---
Date of Service January 25, 2023 Admission HPI Per Admitting Provider This is a 63-year-old male who presents with chronic persistent back and leg pain. After failing since course of nonoperative care is here for surgical invention. Principal Diagnosis Lumbar spinal stenosis with radiculopathy Discharge Data Allergies Allergy/AdvReac Type Severity Reaction Status Date / Time meperidine [From Demerol] Allergy nausea and Verified 01/22/23 08:59 vomiting Consultations 01/22/23 14:23 Consult Hospitalist Routine Procedures Performed Operation Date: 01/22/23 10:05 Actual Procedures p L4-S1 Decompression ,L5-S1 Decompression and Fusion, Spinal Cord Monitoring(Bilateral) - Marshall Bo DO Ordered Studies 01/22/23 11:55 [place] lumbar spine 2-3V Routine Hospital Course (1) Neurogenic claudication due to lumbar spinal stenosis: Patient underwent lumbar decompression fusion tolerated as well as taken to orthopedic for postoperative. Postop day 1 he was up ambulating. Postop day #2 on postop day 3 pain was well controlled. Excellent strength lower extremity testing ANTONIO drain decreasing appropriately. Subsequent discharge home. Discharge orders instructions found in chart for further review. Total Time Total Time Spent Total Time Spent (In Minutes): 20 minutes Discharge Plan Discharge Items Patient Disposition: Home - Self-Care Reason For Visit: Spinal Stenosis, Lumbar Region without Neurogenic Discharge Diagnosis: lumbar spinal stenosis with neurogenic claudication Activity: As commented below Non-emergency contact: Primary Care Provider Call non-emergency contact if: you have any medication questions Follow-up/Referrals: Dante Bustillos, PhD, DO [Primary Care Provider] - Diet: Regular Addtl Attending Provider Instructions: ACTIVITY RECOMMENDATIONS: SELF CARE INSTRUCTIONS AFTER THORACIC/LUMBAR FUSIONS 1. You may walk to your tolerance. It is good exercise for your legs and back. Expect some back and intermittent leg aches and pains. 2. You may perform "counter-top" level activities (make a sandwich, terry with a project, etc.). 3. No bending or lifting of more than 10 pounds or back twisting of any nature (roll like a log when turning in bed). 4. You may ride in a car for 20-30 minutes at a time. No driving until after your first visit with your doctor. 5. Frequent changes of position and restricting sitting to 30 minutes at a time will help limit the amount of back spasms and stiffness you may experience. 6. You may discontinue the use of ambulatory aids (cane, crutches, etc.) once your strength and confidence allow. 7. You may gravel machine operator the shower and let water strike your incision when you arrive home at least once daily. Do not take a tub bath, sit in a hot tub or go into a swimming pool until after your first recheck in the office. SPECIAL CARE INSTRUCTIONS: VERY IMPORTANT TO READ AND REVIEW A. Your surgical incision has been closed with a cosmetic suture under the skin that will dissolve in about 6 weeks. In 14 days, you can use a pair of clean scissors and cut the suture that is left outside of the skin at the ends of your incision. 1. The small skin tapes can be removed 7 days after surgery if they have not fallen off by that point. 2. You may keep the wound open to air as much as possible to promote healing after post-op day number 5 unless told otherwise by your doctor. 3. If you think the wound looks like it is becoming infected (redness or worsening drainage) and/or you are experiencing fever, chill or worsening back pain and muscle spasms, contact the office so that we may evaluate you as soon as possible. B. Complications are uncommon, but please contact us if you have any signs or symptoms of: 1. wound infection (fever higher than 102.5 degrees F, redness, separation of wound, drainage, or increasing pain from the incision) 2. blood clots in legs (pain, swelling, redness and warmth in legs) 3. urinary tract infection (fever higher than 102.5 degrees F, burning upon urination or increased frequency of urination) 4. nerve problems (inability to walk on your toes or heels, numbness, loss of bowel or bladder control) 5. any other symptoms that concern you C. Please call the office at if you have any concerns or questions about your operation or recovery. D. No smoking! Smoking drastically decreases the chance of a solid fusion. E. Do not take any anti-inflammatory medications (Indocin, Advil, Motrin, Aspirin, Naprosyn, etc.) as these may inhibit the chance of a solid fusion. Tylenol is okay to take for pain. MANAGING PAIN AFTER SPINAL SURGERY 1. Narcotic medication is intended for short-term use and will be provided for surgical pain. Surgical pain usually lasts for a period of 4-6 weeks. Narcotic medication includes Percocet, Vicodin, Darvocet, Tylenol #3 or Lortab. 2. Longer-term pain is more appropriately treated with non-narcotic medication such as Tylenol ES. 3. Muscle spasm is not appropriately treated with narcotics. Muscle relaxers such as Soma, Flexeril or Skelaxin can be used along with Tylenol ES. 4. Remember that we all live with some "aches and pains". This is not unusual or uncommon after an injury or as we get older. a. Back pain is expected and may include muscle spasms for 4 to 6 weeks after surgery. The pain should gradually improve. If the pain worsens for no apparent reason, please contact the office. b. Intermittent leg pain may also be experienced and should not be concerned about unless it worsens for no apparent reason. If so, please contact the office. 5. We will provide appropriate medication within the normal guidelines of their prescribed use. We will also be very cautious and aware of potential abuse and extended duration of patients' medication needs. a. Pain medications are for your comfort and to assist with sleep and rest so that the tissue can heal. They are not provided in order to return to normal activity and should not be used through the day. To do so or worsening pain at night can result from ongoing tissue damage and development of tolerance to the prescribed medicine. 6. Please allow 2-3 days to process refills. Prescriptions will not be mailed but must be picked up at the office. FOLLOW UP VISIT: Keep your scheduled follow-up appointment. Any questions, please call the office at . Pending Studies at Discharge: No Stand-Alone Forms: My [facility] [employer], Smoking Cessation Medications and DC Order Prescriptions: New tramadol 50 mg tablet 50 mg PO Q6H PRN (Reason: pain, moderate) Qty: 30 0RF oxycodone 5 mg tablet 5 mg PO DAILY PRN (Reason: pain) Qty: 30 0RF Continued valsartan-hydrochlorothiazide 160-12.5 mg Tablet 1 tab PO QAM amlodipine 5 mg Tablet 5 mg PO QPM Rx Instructions: @2000 aspirin 81 mg Tablet,Delayed Release (Dr/Ec) 81 mg PO QAM zolpidem [Ambien] 5 mg Tablet 5 mg PO HS PRN (Reason: Sleep) Discharge Orders: Discharge Order (Routine); Ordered 01/25/23 Ordered By: Marshall Bo Admission Data Admit Date/Time: 01/22/23 13:08 Attending Provider: Marshall Bo Admit Provider: Marshall Bo Primary Care Provider: Dante Bustillos Other Providers: Latia Zaidi ; Johny Mathur
--- NOTE | 2023-01-25 12:29 | Hospitalist Progress Note ---
Date of Service January 25, 2023 Assessment & Plan (1) Neurogenic claudication due to lumbar spinal stenosis: Plan: Status post surgery by Dr. Bo on 01/22. Postoperative course uncomplicated. Further management per primary team. Surgery: #1 revision decompression with bilateral medial facetectomies and foraminotomies L1 4 L5 L5-S1. #2 posterior spinal fusion L5-S1. #3 placement of posterior instrumentation L5-S1. #4 interbody fusion L5-S1. #5 placement of Spira 12 x 26 mm cage L5-S1. #6 placement locally harvested morselized autograft in the posterior gutters. #7 placement of I factor amount of the talus in the interbody space and posterior lateral gutters. (2) Hypertension: Plan: -Continue baby aspirin and amlodipine, valsartan/HCTZ (3) Chewing tobacco nicotine dependence: Plan: Recommend cessation (4) GERD (gastroesophageal reflux disease): Plan: -Stable (5) Solitary kidney, acquired: Plan: -Right kidney. 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 Patient is medically stable from hospitalist perspective . Updated at bedside Admission and Anticipated Discharge Date Admission Date: January 22, 2023 Subjective Patient was seen and examined at bedside. He feels good and ready to go home. Pain is controlled. Tolerating diet without issues. voiding without issues. Had bowel movement but still feels incomplete evacuation. No fever, chills, chest pain or shortness of breath. Review of Systems Review of Systems: All systems reviewed & are unremarkable except as noted in Subjective Physical Exam Physical Exam: General: Sitting comfortably in bed, not in distress, on room air HEENT: MYRON, MMM Chest: Clear breath sounds bilaterally, no wheezes or crackles CVS: Regular rate and rhythm, normal heart sounds, no murmur Abdomen: Soft, non tender, not distended, normal bowel sounds Neuro: Awake, alert, oriented, conversing well, non focal Extremities: No cyanosis, clubbing or edema ANTONIO drain with serosanguineous output MSK: Back incision covered with dressing, clean Results & Data Results & Data Vital Signs (Past 12 Hours) Vital Signs Temp Pulse Resp BP Pulse Ox O2 Del Method 01/25/23 07:56 36.3 C L 71 18 164/94 H 95 Room Air
== END 2023-01-25 15:03 | disposition home or self-care (01) | DRG 455 ==
LOC: ASU 08:13 → 3E 13:08